=== PATIENT | male | born 1980 | race Two or more races ===

== ENCOUNTER 2022-11-06 14:58 | Emergency (ER) | payer OTHER ==
[2022-11-06 15:08] VITALS: BP 130/62; PULSE 58; RESP 18; TEMP 97.9; BMI 29.8
[2022-11-06] MEDS ORDERED: ACETAMINOPHEN 325 MG TABLET (FP) PO ONE (17:10)
== END 2022-11-06 17:29 | disposition home or self-care (01) ==
LOC: JER 14:58
DX: B02.9 Zoster without complications (principal)
CPT/HCPCS: 99282-25